=== PATIENT | female | born 1950 | race American Indian/Alaskan Native ===

== ENCOUNTER 2019-06-05 10:26 | Outpatient (CLI) | payer MEDICARE ==
--- NOTE | 2019-06-05 12:26 | Mammography Report ---
DEXA BONE DENSITY SCAN INDICATION: OSTEOPENIA. Postmenopausal COMPARISON: None available. LUMBAR SPINE (L1-L4): Bone mineral density (BMD) is 0.892 g/cm2. T-score is -2.3 (standard deviations of Young Adult mean). Z-score is -0.2 (standard deviations of Age Matched mean). LEFT FEMORAL NECK: Bone mineral density (BMD) is 0.591 g/cm2. T-score is -2.5 (standard deviations of Young Adult mean). Z-score is -1.2 (standard deviations of Age Matched mean). LEFT HIP TOTAL Bone mineral density (BMD) is .861 g/cm2. T-score is -1.1 (standard deviations of Young Adult mean). Z-score is 0 (standard deviations of Age Matched mean). IMPRESSION: 1. WHO Classification: Osteopenia with increased fracture risk based on lumbar spine measurements. 2.1. WHO Classification: Osteoporosis with high fracture risk based on left femoral neck measurements . Signer Name: Jamarcus Antony MD Signed: 06/05/2019 12:22 PM Workstation Name: [id number]
== END 2019-06-05 10:27 | disposition home or self-care (01) ==
LOC: SPVWC 10:26
PROVIDERS: ATTEND Physician Assistant
DX: M85.88 Other specified disorders of bone density and structure, other site (principal); Z78.0 Asymptomatic menopausal state
CPT/HCPCS: 77080